=== PATIENT | female | born 2000 | race Two or more races ===

== ENCOUNTER 2020-01-27 16:57 | Emergency (ER) | payer SELFPAY ==
[~2020-01-27] VITALS: Ht 170.2 cm; Wt 90.4 kg
[2020-01-27 17:00] VITALS: BP 140/77
[2020-01-27] MEDS ORDERED: ACETAMINOPHEN 500 MG TABLET PO ONE (17:30)
[2020-01-27 17:52] LABS: BASOPHILS # (AUTO) 0.06 x10^3/uL (0-0.1); BASOPHILS % (AUTO) 0 % (0-1); EOSINOPHILS # (AUTO) 0.15 x10^3/uL (0-0.4); EOSINOPHILS % (AUTO) 1 % (1-7); LYMPHOCYTES # (AUTO) 1.11 x10^3/uL (1-3.4); LYMPHOCYTES % (AUTO) 7 % (22-44); MD NO; MEAN CORPUSCULAR HEMOGLOBIN 27.4 pg (27.0-34.8); MEAN CORPUSCULAR HGB CONC 32.9 g/dL (32.4-35.8); MEAN CORPUSCULAR VOLUME 83.2 fL (80-100); MEAN PLATELET VOLUME 8.5 fL (7.4-10.4); MONOCYTES # (AUTO) 0.93 x10^3/uL (0.2-0.8); MONOCYTES % (AUTO) 6 % (2-9); NEUTROPHILS % (AUTO) 86 % (42-75); PLATELET COUNT 319 x10^3/uL (130-400); RED BLOOD COUNT 5.22 x10^6/uL (3.82-5.3); RED CELL DISTRIBUTION WIDTH 15.6 % (9.6-15.2)
[2020-01-27 18:00] LABS: ALANINE AMINOTRANSFERASE 18 U/L (12-78); ALBUMIN 3.6 g/dL (3.4-5.0); ANION GAP 7 mmol/L (5-15); CALCIUM 9.1 mg/dL (8.5-10.1); CHLORIDE 106 mmol/L (98-107); CREATININE 0.85 mg/dL (0.55-1.02)
[2020-01-27 18:00] LABS: MICROSCOPIC INDICATED
[2020-01-27 18:02] LABS: ALKALINE PHOSPHATASE 113 U/L (45-117); BILIRUBIN,TOTAL 0.6 mg/dL (0.2-1.0); TOTAL PROTEIN 7.9 g/dL (6.4-8.2)
[2020-01-27 18:02] LABS: HCG UR SG 1.025 (1.003-1.030)
[2020-01-27] MEDS ORDERED: CEFDINIR 300 MG CAPSULE PO ONE (19:00)
[2020-01-27] MEDS ORDERED: ACETAMINOPHEN 500 MG TABLET ONE (19:02)
[2020-01-27] MEDS ORDERED: CEFDINIR 300 MG CAPSULE ONE (19:02)
== END 2020-01-27 19:17 | disposition home or self-care (01) ==
LOC: ED 17:36
DX: N30.01 Acute cystitis with hematuria (principal); Z90.89 Acquired absence of other organs
CPT/HCPCS: 36415; 76830; 80053; 81001; 81025; 85025; 86901; 87077; 87086; 87186; 99284